=== PATIENT | male | born 1955 | race Caucasian/White ===

== ENCOUNTER 2018-11-30 08:09 | Inpatient (IN) ==
--- NOTE | 2018-11-20 13:04 | Anesthesiology Consultation ---
Date of Service November 20, 2018 Assessment & Plan (1) Encounter for pre-operative examination: Chart Review Chart Review: Acceptable Risk for Surgery (Pending surgeon-ordered PCP preop evaluation (Ricci)) and Patient seen in Pre Admission Testing Teaching & Discussion Pre-Anesthesia Teaching/Discussion Notes: Instructed NPO after midnight before surgery,except medications with 15 cc of water. Medication instructions provided according to the PAT guidelines. History Surgery Operation Date: 11/30/18 11:05 Proposed Procedures p Right Total Hip Arthroplasty - Ag Gonzales MD Height/Weight Height: 5 ft 9.5 in Weight: 88.7 kg Allergies Allergy/AdvReac Type Severity Reaction Status Date / Time No Known Allergies Allergy Verified 11/20/18 10:32 Medications Home Medications Medication Instructions Recorded Confirmed Last Taken Potassium Magnesium 1 tab PO DAILY 11/20/18 11/20/18 Unknown losartan 25 mg PO BID 11/20/18 11/20/18 Unknown multivitamin 1 tab PO DAILY 11/20/18 11/20/18 Unknown Past Medical History Medical History Bradycardia SINUS; ASYMPTOMATIC Hypertension Osteoarthritis Sleep apnea CPAP Past Surgical History Surgical History History of colonoscopy History of herniorrhaphy INGUINAL Past Anesthesia History No Hx of Anesthesia Complications and No Family Hx of Anesthesia Complications History of PONV No Motion Sickness Screening History of Motion Sickness: No Social History Smoking Status: Never smoker Do You Dip or Chew Tobacco: Yes (1 CAN/MONTH- ADVISED NOT TO CHEW AM DOS) Hx Alcohol Use: Yes Alcohol type: beer and wine alcohol intake frequency: 0-2 drinks per day (2-3 BEERS/NIGHT) Hx Substance Use: No substance use type: does not use Exercise / Class Metabolic Activity III < 4 Walking/Shop/Light housework Review of Systems URI symptoms/congestion improving. Patient denies chest pain, shortness of breath, wheezing, palpitations. Physical Exam Vital Signs VITALS BP 142/92 P 64 TEMP 97.6 SP02 98%RA RESP 18 PHYSICAL Full neck and c-spine range of motion. Full TMJ range of motion. TMD 3 finger breaths Mallampati Score 2 Dentition: intact, crowns on sides/molars Lungs: clear throughout to auscultation Cardiac: regular rate and rhythm, no murmurs noted Spine: normal Carotid arteries: negative bruit Extremities: no edema Testing Electrocardiogram Date: 09/20/18 Findings: + SB @ (48) Chest X-Ray Date: 11/20/18 Findings: + NAD Mild hyperinflation without acute process. Laboratory Results 11/20/18 13:12 11/20/18 13:12 Blood Type A Positive 11/20/18 13:12 Antibody Screen NEGATIVE 11/20/18 13:12 PT 10.1 Seconds (9.0-12.0) 11/20/18 13:12 INR 1.0 (0.9-1.1) 11/20/18 13:12 APTT 25.1 Seconds (21.0-31.0) 11/20/18 13:12 Hemoglobin A1c 5.0 % (4.5-5.6) 11/20/18 13:12 Urine Color Yellow 11/20/18 Unknown Urine Appearance Clear (Clear) 11/20/18 Unknown Urine pH 6.0 (4.5-7.5) 11/20/18 Unknown Ur Specific [place] 1.012 (1.000-1.030) 11/20/18 Unknown Urine Protein Negative (Negative) 11/20/18 Unknown Urine Glucose (UA) Negative (Negative) 11/20/18 Unknown Urine Ketones Negative (Negative) 11/20/18 Unknown Urine Nitrite Negative (Negative) 11/20/18 Unknown Ur Leukocyte Esterase Negative (Negative) 11/20/18 Unknown
--- NOTE | 2018-11-20 13:07 | PAT Medication Instructions ---
Medication Instructions Date of Service November 20, 2018 Home Medications Potassium Magnesium 1 tab PO DAILY losartan 25 mg PO BID multivitamin 1 tab PO DAILY DO NOT take the morning of surgery Potassium Magnesium 1 tab PO DAILY losartan 25 mg PO BID multivitamin 1 tab PO DAILY Take evening before surgery losartan 25 mg PO BID Other Notes If you have any questions please call us at [phone] or [phone] or [phone] or [phone]
--- NOTE | 2018-11-20 13:43 | XRay Report ---
XR chest Pre-admission PA/Lat HISTORY: 63 years-old Male pat preoperative exam. No acute chest complaints COMPARISON: None available TECHNIQUE: PA and lateral views of the chest FINDINGS: Cardiomediastinal and hilar silhouettes are within normal limits. Lungs are mildly hyperinflated. No pneumothorax, pleural effusion, focal airspace consolidation or overt pulmonary edema. Degenerative c hanges are seen about the shoulders and spine. IMPRESSION: Mild hyperinflation without acute process. The above report was generated using voice recognition software. It may contain grammatical, syntax o r spelling errors. Electronically signed by: Erickson Chappell M.D. 11/20/2018 1:42 PM
[2018-11-20 14:55] LABS: Basophils # (auto) 0.03 K/uL (0-0.2); Basophils % (auto) 0.4 %; Eosinophils # (auto) 0.03 K/uL (0-0.5); Eosinophils % (auto) 0.4 %; Hematocrit (blood only) 40.7 % (42-52); Hemoglobin 14.9 g/dL (14.0-18.0); Immature Granulocytes # (auto) 0.02 K/uL (0.00-0.02); Immature Granulocytes % (auto) 0.2 %; Lymphocytes # (auto) 1.26 K/uL (1.2-3.4); Lymphocytes % (auto) 15.6 %; Mean Corpuscular Hgb Conc 36.6 g/dL (32-36); Mean Corpuscular Volume 95.5 fL (80-100); Mean Platelet Volume 9.4 fL (7.4-10.4); Monocytes # (auto) 0.82 K/uL (0.11-0.59); Monocytes % (auto) 10.1 %; Neutrophils # (auto) 5.92 K/uL (1.4-6.5); Neutrophils % (auto) 73.3 %; Platelet Count 210 K/uL (130-400); RDW Coefficient of Variation 12.6 % (11.5-14.5); RDW Standard Deviation 43.7 fL (36.4-46.3); Red Blood Count 4.26 M/uL (4.7-6.1); White Blood Count 8.08 K/uL (4.8-10.8)
[2018-11-20 15:04] LABS: Appearance Urine Clear (Clear); Bilirubin Urine Negative (Negative); Blood Urine Negative (Negative); Color Urine Yellow; Glucose Urine UA Negative (Negative); Ketones Urine Negative (Negative); Leukocyte Esterase Urine Negative (Negative); Nitrite Urine Negative (Negative); Protein Urine Negative (Negative); Specific Gravity Urine 1.012 (1.000-1.030); Urobilinogen Urine Negative (Negative)
[2018-11-20 15:05] LABS: Partial Thromboplastin Ratio 0.9; Partial Thromboplastin Time 25.1 Seconds (21.0-31.0); Prothrombin Time 10.1 Seconds (9.0-12.0)
[2018-11-20 15:10] LABS: BUN Creatinine Ratio 12.4 (10-20); Calcium 8.9 mg/dl (8.5-10.1); Creatinine Clr Calc Pharmacy 76.5 ml/min; Est GFR (Non-African American) 72.5; Potassium 4.3 mmol/L (3.5-5.1)
[2018-11-20 15:11] LABS: Estimated Average Glucose 97 mg/dl
--- NOTE | 2018-11-29 15:04 | History and Physical Report ---
DATE OF ADMISSION: 11/30/2018 CHIEF COMPLAINT: Right hip pain. HISTORY OF PRESENT ILLNESS: The patient is a 62-year-old gentleman with known right hip osteoarthritis. He has pain and disability with activities of daily living including his job activities. He has pain with prolonged weightbearing and standing activities. He has difficulty kneeling, bending, or squatting activities. Due to ongoing pain and disability he now desires to proceed with right total hip arthroplasty. PAST MEDICAL HISTORY: Hypertension. PAST SURGICAL HISTORY: None. MEDICATIONS: Losartan 50 mg daily. ALLERGIES: None. SOCIAL HISTORY: He states weekly alcohol use. REVIEW OF SYSTEMS: Noncontributory. PHYSICAL EXAMINATION: GENERAL: Well-nourished, well-developed male who appears stated age. HEENT: Normocephalic, atraumatic, extraocular movements intact, oropharynx pink and moist. NECK: Supple without adenopathy. LUNGS: Clear to auscultation bilaterally. HEART: Regular rate and rhythm. ABDOMEN: Soft, nontender, nondistended. EXTREMITIES: The upper extremities are within normal limits. The right hip demonstrates limited range of motion. There is limitation of active and passive internal/external rotation with pain at end range. X-RAYS: X-rays were reviewed. He has severe osteoarthritis about the right hip with complete loss of the joint space. There is a large femoral head and acetabular osteophytes. ASSESSMENT: Right hip degenerative joint disease. PLAN: Risks versus benefits were discussed, consent was obtained. The patient's primary care physician is Dr. Ricci. Will proceed with right total hip arthroplasty as indicated.
[~2018-11-30 08:09] MED LIST: ACETAMINOPHEN 500 MG TAB PO SCH; BUPIVACAINE 0.5 % 5 MG/1 ML PF 10ML VIAL ONE; CEFAZOLIN 2000MG 2,000 MG/15 ML SYR IV SCH; CeleBREX 200 MG CAP PO SCH; FAMOTIDINE 20 MG TAB PO SCH; GABAPENTIN 300 MG x 2 PO SCH; LR 500ML BOLUS, THEN 15ML/HR IV SCH; METOCLOPRAMIDE HCL 10 MG TABLET PO SCH; ROPIVACAINE 0.5% HCL/PF 150 MG, BUPIVACAINE 0.5% MPF 30 ML, EPINEPHrine 30MG/30ML (OR U... INFIL SCH; TRANEXAMIC ACID 1,000 MG **IV Intra-op IV SCH; TRANEXAMIC ACID 1,000 MG **IV Pre-op IV SCH; dexAMETHasone 4 MG TAB PO SCH
[2018-11-30] MEDS ORDERED: PROPOFOL IV EMULSION 10 MG/ML 20 ML VIAL IV ONE (08:39)
[2018-11-30] MEDS ORDERED: LIDOCAINE HCL 2% 2 ML VIAL/AMP(20MG/ML) INFIL ONE (08:39)
[2018-11-30] MEDS ORDERED: MIDAZOLAM HCL 1 MG/ML 2ML VIAL ONE ×2 (08:39→08:40)
[2018-11-30] MEDS ORDERED: ORTHO JOINT ANESTHETIC ONE (09:51)
[2018-11-30] MEDS ORDERED: BACITRACIN INJ 50,000 UNIT VIAL ONE (09:51)
[2018-11-30] MEDS ORDERED: POVIDONE-IODINE OP SOLN 30 ML BTL ONE (09:51)
[2018-11-30] MEDS ORDERED: KETOROLAC TROMETHAMINE 15 MG/ML VIAL IV PRN (10:21)
[2018-11-30] MEDS ORDERED: ONDANSETRON INJ 2 MG/ML 2 ML VIAL IV PRN ×2 (10:21→12:44)
[2018-11-30] MEDS ORDERED: ATROPINE SULFATE 0.1 MG/ML 10ML SYR IV PRN (10:21)
[2018-11-30] MEDS ORDERED: ePHEDrine sulfate 50 MG/ML AMP IV PRN (10:21)
[2018-11-30] MEDS ORDERED: PHENYLEPHRINE 100MCG/ML 5ML SYR IV PRN (10:21)
[2018-11-30] MEDS ORDERED: HYDROmorphone INJ 1 MG/ML SYRINGE IV PRN (10:21)
--- NOTE | 2018-11-30 10:25 | History & Physical Bridge Note ---
Date of Service November 30, 2018 History & Physical Bridge Note I have examined the patient, reviewed the History & Physical and in the interval since the performance of the History & Physical I have noted the following changes of clinical significance: no changes noted
[2018-11-30] MEDS ORDERED: ePHEDrine sulfate 50 MG/ML SYR ONE (11:28)
--- NOTE | 2018-11-30 11:32 | Operative Report ---
Post Operative Report Pre & Post Diagnosis Operation Date: 11/30/18 10:55 Pre-Op Diagnosis: RIGHT HIP OSTEOARTHRITIS Post-Op Diagnosis: RIGHT HIP OSTEOARTHRITIS Procedure Operation Date: 11/30/18 10:55 Actual Procedures p Right Total Hip Arthroplasty(Right) - Ag Gonzales MD Surgeon Ag Gonzales MD [employer] Leticia Estimated Blood Loss 100 Findings Consistent with Post-Op Diagnosis Specimens Femoral head Anesthesia Type Spinal MAC Complications none Disposition Accompanied Patient To Recovery: No Disposition: Recovery Room Indications Hip pain Description of Procedure Patient's right hip was prepped and draped in usual sterile manner a Maureen Langenbeck incision was made over the right hip subcutaneous tissue was sharply dissected which was used for hemostasis. Fascia was incised throughout the length of the wound and the short external rotators were divided from the posterior aspect of the femur using electrocautery. The T capsulotomy incision was made femoral head was osteotomized at the appropriate level using the oscillating saw. Retractors were placed and the labrum was removed. Sequential reamers were carried up to size 56 which gave good exposure of subchondral bone. A 56 shell was impacted into position and held with. Elevated posterior wall liner was placed. Next attention was turned to the femur a box osteotome was used to gain access to the femoral canal. A T-handled canal finder was utilized as well as a lateralization reamer carried up to a size 5 which gave good fit and fill. Trial reduction was carried out +0 femoral neck length was chosen the size to be used. The final components were impacted in position the hip was relocated was found to be exceptionally stable and the piriformis was repaired to the posterior aspect of the femur using a #1 Vicryl. Fascia was then closed after thorough irrigation. Betadine soap using #1 Vicryl. The subcutaneous tissue was closed using 0 Dexon and the skin was closed was applied. Sterile dressing of Adaptic 4 x 4's ABDs and foam tape was applied. The patient tolerated the procedure well. I attest to the content of the Intraoperative Record and any orders documented therein. Any exceptions are noted below.
--- NOTE | 2018-11-30 12:36 | Anesthesiology Progress Note ---
Date of Service November 30, 2018 Anesthesia Post Procedure Vital Signs Vital Signs: Temp Pulse Pulse Resp BP BP Pulse Ox 11/30/18 12:30 65 16 142/71 H 96 11/30/18 12:20 36.4 C L 70 16 125/64 97 11/30/18 12:10 68 16 113/90 97 11/30/18 12:00 68 16 146/80 H 99 11/30/18 11:54 36.1 C L 83 16 134/59 L 96 11/30/18 08:37 37.0 C 56 L 16 176/87 H 99 Notes Mental Status: alert / awake / arousable Patient Amnestic to Procedure: Yes Nausea / Vomiting: adequately controlled Pain: adequately controlled Airway Patency, RR, SpO2: stable & adequate BP & HR: stable & adequate Hydration State: stable & adequate Neuraxial Anesthesia: was administered and sensory block is resolving Anesthetic Complications: no major complications apparent
[2018-11-30] MEDS ORDERED: OXYCODONE HCL IR 5 MG TAB (IMMEDIATE RELEASE) PO PRN (12:44)
[2018-11-30] MEDS ORDERED: ALUMINUM/MAGNESIUM SUSP 30 ML UDC PO PRN (12:44)
[2018-11-30] MEDS ORDERED: TAMSULOSIN HCL 0.4 MG CAP PO PRN (12:44)
[2018-11-30] MEDS ORDERED: NALOXONE HCL 0.4 MG/1 ML VIAL/CARP IV PRN (12:44)
[2018-11-30] MEDS ORDERED: MAGNESIUM HYDROXIDE SUSP 30 ML UDC PO PRN (12:44)
[2018-11-30] MEDS ORDERED: HYDROmorphone INJ 0.5 MG/0.5 ML SYR IV PRN (12:44)
[2018-11-30] MEDS ORDERED: BISACODYL 10 MG SUPP PR PRN (12:44)
[2018-11-30] MEDS ORDERED: METOCLOPRAMIDE HCL INJ 5 MG/ML 2 ML VIAL IV PRN (12:44)
--- NOTE | 2018-11-30 12:56 | XRay Report ---
AP PELVIS, CROSSTABLE LATERAL RIGHT HIP History: Right total hip arthroplasty. Degenerative arthritis. Postop. FINDINGS: The patient is status post a right total hip arthroplasty. The hardware is intact. No fract ure or dislocation. Surgical drains are in place. IMPRESSION: Right total hip arthroplasty. No evidence for hardware complication Electronically signed by: Satinder Rojas M.D. 11/30/2018 12:54 PM
[2018-11-30] MEDS ORDERED: SODIUM CHLORIDE 0.9% 1000ML 1,000 ML IV SCH (13:15)
[2018-11-30] MEDS: KETOROLAC TROMETHAMINE 15 MG/ML VIAL IV SCH ×2 (14:04→20:16)
[2018-11-30] MEDS: CEFAZOLIN 2000MG 2,000 MG/15 ML SYR IV SCH ×2 (17:22→23:59)
[2018-11-30] MEDS: ASCORBIC ACID 500 MG TAB PO SCH (17:26)
[2018-11-30] MEDS: FERROUS GLUCONATE 324 MG TAB PO SCH (17:26)
[2018-11-30] MEDS: LOSARTAN POTASSIUM 25 MG TAB PO SCH (20:23)
[2018-11-30] MEDS: DOCUSATE SODIUM 100 MG CAP PO SCH (20:24)
[2018-11-30] MEDS ORDERED: SENNA 8.6 MG TAB PO SCH (21:00)
[2018-11-30] MEDS: ACETAMINOPHEN 500 MG TAB PO SCH (21:32)
[2018-12-01] MEDS: KETOROLAC TROMETHAMINE 15 MG/ML VIAL IV SCH ×2 (01:11→08:55)
[2018-12-01] MEDS: ACETAMINOPHEN 500 MG TAB PO SCH ×2 (06:09→15:13)
[2018-12-01 06:11] LABS: Hematocrit (blood only) 30.1 % (42-52); Hemoglobin 11.1 g/dL (14.0-18.0); Immature Granulocytes # (auto) 0.05 K/uL (0.00-0.02); Immature Granulocytes % (auto) 0.5 %; Lymphocytes # (auto) 0.78 K/uL (1.2-3.4); Lymphocytes % (auto) 7.2 %; Mean Corpuscular Hgb Conc 36.9 g/dL (32-36); Mean Corpuscular Volume 94.4 fL (80-100); Mean Platelet Volume 8.5 fL (7.4-10.4); Monocytes # (auto) 1.05 K/uL (0.11-0.59); Monocytes % (auto) 9.7 %; Neutrophils # (auto) 8.89 K/uL (1.4-6.5); Neutrophils % (auto) 82.6 %; Platelet Count 203 K/uL (130-400); RDW Coefficient of Variation 12.4 % (11.5-14.5); RDW Standard Deviation 41.9 fL (36.4-46.3); Red Blood Count 3.19 M/uL (4.7-6.1); White Blood Count 10.77 K/uL (4.8-10.8)
[2018-12-01 06:43] LABS: BUN Creatinine Ratio 19.4 (10-20); Calcium 8.6 mg/dl (8.5-10.1); Creatinine Clr Calc Pharmacy 75.7 ml/min; Est GFR (African American) 84.9; Est GFR (Non-African American) 73.3; Potassium 4.5 mmol/L (3.5-5.1)
--- NOTE | 2018-12-01 07:32 | Orthopedic Progress Note ---
Date of Service December 01, 2018 Assessment & Plan (1) Status post right hip replacement: 63 yo male stable POD #1 s/p right NYLA 1. Med management 2. DVT prophylaxis- Xarelto, SCDs 3. PT/OT 4. D/C planning- home w/out services Subjective Pt resting in bed, pain controlled, denies complaints Physical Exam Vital Signs (Past 24 Hours): Last Vital Signs Temp 36.7 C 12/01/18 03:18 Pulse 75 12/01/18 03:18 Resp 16 12/01/18 03:18 BP 118/72 12/01/18 03:18 Pulse Ox 99 12/01/18 03:18 Physical Exam: Toes mobile, N/V/I, dressing and drain in place Results & Data Laboratory Results 12/01/18 12/01/18 Range/Units 05:50 05:50 WBC 10.77 (4.8-10.8) K/uL RBC 3.19 L (4.7-6.1) M/uL Hgb 11.1 L (14.0-18.0) g/dL Hct 30.1 L (42-52) % MCV 94.4 (80-100) fL MCH 34.8 H (25-34) pg MCHC 36.9 H (32-36) g/dL RDW Std Deviation 41.9 (36.4-46.3) fL RDW Coeff of Juan 12.4 (11.5-14.5) % Plt Count 203 (130-400) K/uL MPV 8.5 (7.4-10.4) fL Immature Gran % (Auto) 0.5 % Neut % (Auto) 82.6 % Lymph % (Auto) 7.2 % [place] % (Auto) 9.7 % Eos % (Auto) 0.0 % Baso % (Auto) 0.0 % Immature Gran # (Auto) 0.05 H (0.00-0.02) K/uL Neut # (Auto) 8.89 H (1.4-6.5) K/uL Lymph # (Auto) 0.78 L (1.2-3.4) K/uL [place] # (Auto) 1.05 H (0.11-0.59) K/uL Eos # (Auto) 0.00 (0-0.5) K/uL Baso # (Auto) 0.00 (0-0.2) K/uL Sodium 140 (136-145) mmol/L Potassium 4.5 (3.5-5.1) mmol/L Chloride 109 H (98-107) mmol/L Carbon Dioxide 25 (21-32) mmol/L Anion Gap 6.0 (3-11) BUN 21 H (7-18) mg/dl Creatinine 1.06 (0.6-1.4) mg/dl Est Cr Clr Drug Dosing 75.7 ml/min Est GFR ( Amer) 84.9 Est GFR (Non-Af Amer) 73.3 BUN/Creatinine Ratio 19.4 (10-20) Glucose 123 H (70-99) mg/dl Calcium 8.6 (8.5-10.1) mg/dl
[2018-12-01] MEDS ORDERED: dexAMETHasone 10 MG in SYRINGE 0 ML IV SCH (08:00)
[2018-12-01] MEDS: LOSARTAN POTASSIUM 25 MG TAB PO SCH (08:50)
[2018-12-01] MEDS: DOCUSATE SODIUM 100 MG CAP PO SCH (08:52)
[2018-12-01] MEDS: ASCORBIC ACID 500 MG TAB PO SCH (08:52)
[2018-12-01] MEDS: FERROUS GLUCONATE 324 MG TAB PO SCH (08:52)
[2018-12-01] MEDS ORDERED: MULTIVITAMIN TAB PO SCH ×2 (09:00)
[2018-12-01] MEDS ORDERED: POTASSIUM MAGNESIUM PO SCH (09:00)
[2018-12-01] MEDS ORDERED: RIVAROXABAN 10 MG TABLET PO SCH (12:00)
--- NOTE | 2018-12-06 12:27 | Discharge Summary ---
CHIEF COMPLAINT: Right hip pain. Please see complete history and physical examination. HOSPITAL COURSE: The patient underwent right total hip arthroplasty without complication. He tolerated the procedure well and was discharged to recovery room in stable condition. His postoperative course was relatively uneventful. His postoperative pain was reasonably well controlled with a combination of spinal anesthesia, intraoperative joint injection, IV, and oral pain medications. He was started on Xarelto for DVT prophylaxis. He also utilized ISABELLA stockings and SCDs for additional prophylaxis. His H and H was stable and did not require transfusion. His surgical drain and dressing were discontinued prior to discharge. He tolerated postoperative physical therapy reasonably well as he was ambulating and transferring appropriately. He was observing all total hip precautions. He was discharged home on postoperative day 1. He will continue his physical therapy without services on his own. He will continue his Xarelto for DVT prophylaxis and follow up in our office in approximately 10-14 days for his initial postop evaluation.
== END 2018-12-01 16:10 | disposition home or self-care (01) | DRG 470 ==
LOC: ASU 08:09 → 3E 11:55